=== PATIENT | male | born 1975 | race Caucasian/White ===

== ENCOUNTER 2021-08-17 12:54 | Emergency (ER) | payer OTHER ==
[~2021-08-17] VITALS: Ht 177.8 cm; Wt 72.6 kg
[2021-08-17 13:08] VITALS: BP 119/67
[2021-08-17] MEDS ORDERED: ALBU8.5H8 INH (13:25)
--- NOTE | 2021-08-17 13:31 | NUR ---
Patient discharged to home in stable condition. Written and verbal after care instructions given. Patient verbalizes understanding of instruction.
== END 2021-08-17 13:31 | disposition home or self-care (01) ==
LOC: ER 12:54
DX: J45.909 Unspecified asthma, uncomplicated (principal)